=== PATIENT | female | born 1955 | race Caucasian/White ===

== ENCOUNTER → 2017-02-23 | Outpatient (CLI) | payer BC ==
[~2017-02-23] MED LIST: ACET-749 PO; ALBU1AER9 INH; BECL0.3A INH; CALCIUM/VIT D PO; CITA20TA9 PO; CLB/200 PO; CYAN100T PO; CYCL10TA6 PO; FURO-85 PO; HYDR-3785 PO; METR0.7527 TD; MONT1TAB3 PO; MULT-188 PO; MULT-506 PO; OLOP0.1S2 OPB; OMEP40CA PO; POLYSOL4 OPB; POTA1CAP2 PO; ROPI1TAB PO; SALI1SPR3 NAE; TETR1CAP7 PO; TRAZ1TAB52 PO; [UNRECOGNIZED DRUG - OTHER] PO
--- NOTE | 2017-02-24 13:54 | MAMMOGRAPHY REPORT ---
BILATERAL DIGITAL SCREENING MAMMOGRAM TOMOSYNTHESIS WITH CAD: 02/23/2017 CLINICAL HISTORY: Routine screening. TECHNIQUE: Breast tomosynthesis in addition to standard 2D mammography was performed. Current study was also evaluated with a Computer Aided Detection (CAD) system. COMPARISON: Comparison is made to exams dated: 02/22/2016 mammogram, 02/15/2016 mammogram, 02/12/2015 lexi mogram, 02/06/2014 mammogram, 02/03/2013 mammogram, and 02/02/2012 mammogram - [facility] [address] BREAST COMPOSITION: The tissue of both breasts is almost entirely fatty. FINDINGS: A 4 mm mass, previously documented to represent a cyst, in the 3:00 left breast has resolv ed. There is a stable 10 mm mass in the upper outer middle one third of the left breast. No new cameron picious mass, architectural distortion or cluster of microcalcifications is seen. IMPRESSION: ACR BI-RADS CATEGORY 1: NEGATIVE There is no mammographic evidence of malignancy. A 1 year screening mammogram is recommended. The pa tient will receive written notification of the results. Approximately 10% of breast cancers are not detected with mammography. A negative mammographic report should not delay biopsy if a clinically suggestive mass is present. Adriane Robles M.D. ay/:02/23/2017 16:27:29 Tool Crib Supervisor: José Antonio GARZA(Irasema)(M), [facility] letter sent: Normal 1/2 BI-RADS Code: ACR BI-RADS Category 1: Negative
== END | disposition home or self-care (01) ==
LOC: C.MAMM 14:50
PROVIDERS: ATTEND Family Medicine
DX: Z12.31 Encounter for screening mammogram for malignant neoplasm of breast (principal)

== ENCOUNTER → 2018-03-25 | Outpatient (CLI) | payer BC ==
[~2018-03-25] MED LIST changes: -ACET-749 PO; +ACET300T3 PO; -OLOP0.1S2 OPB; +OLOP0.1S3 OPB; +SALI-3 NAE; -SALI1SPR3 NAE
== END | disposition home or self-care (01) ==
LOC: C.MAMM 14:05
PROVIDERS: ATTEND Family Medicine
DX: M85.88 Other specified disorders of bone density and structure, other site (principal); M85.851 Other specified disorders of bone density and structure, right thigh; M85.852 Other specified disorders of bone density and structure, left thigh

== ENCOUNTER → 2018-03-31 | Outpatient (CLI) | payer BC ==
--- NOTE | 2018-04-01 15:43 | MAMMOGRAPHY REPORT ---
BILATERAL DIGITAL SCREENING MAMMOGRAM TOMOSYNTHESIS WITH CAD: 03/31/2018 CLINICAL HISTORY: Routine screening. Patient has no complaints. TECHNIQUE: The study was acquired using full field digital technology and interpreted from soft copy. Breast tomosynthesis in addition to standard 2D mammography was performed. Current study was also ev aluated with a Computer Aided Detection (CAD) system. COMPARISON: Comparison is made to exams dated: 02/23/2017 mammogram, 02/22/2016 mammogram, 02/15/2016 lexi mogram, 02/12/2015 mammogram, 08/08/2014 mammogram, and 02/09/2014 mammogram - [facility]. BREAST COMPOSITION: The tissue of both breasts is almost entirely fatty. FINDINGS: No suspicious masses, calcifications, or areas of architectural distortion are noted in either breast . There has been no significant interval change compared to prior exams. Small mass in the left uppe r outer quadrant is stable compared to prior exams dating back to at least 2008. IMPRESSION: ACR BI-RADS CATEGORY 2: BENIGN There is no mammographic evidence of malignancy. A 1 year screening mammogram is recommended.( 019) The patient will receive written notification of the results. Some breast cancers are not detected with mammography. A negative mammographic report should not samir y biopsy if a clinically suggestive mass is present. Julia Galo M.D. /:03/31/2018 16:24:58 Flake Cutter Operator: RT Jesse(Irasema)(M)(BD), [facility] letter sent: Normal 1/2 BI-RADS Code: ACR BI-RADS Category 2: Benign
== END | disposition home or self-care (01) ==
LOC: C.MAMM 16:05
PROVIDERS: ATTEND Family Medicine
DX: Z12.31 Encounter for screening mammogram for malignant neoplasm of breast (principal)

== ENCOUNTER 2024-09-13 19:27 | Observation (INO) ==
[2024-09-13] MEDS: ALBUT/IPRATROP 3MG/0.5MG NEB 3 ML VIAL NEB STA ×2 (19:52→21:16)
--- NOTE | 2024-09-13 19:53 | Emergency Department Note ---
Impression & Plan Hypoxia ADMIT ED Provider Note HPI: History obtained from patient. The patient is a 69-year-old female with history of asthma, presents the emergency department with a chief complaint of ongoing cough and shortness of breath. Patient states that she has had the symptoms to some degree for about the past 3 months. Patient states they seem to be getting more intense over the past month. Patient states she is currently on cefuroxime for possible pneumonia after recent sputum culture. Patient states that over the past several days she seems to be getting more short of breath with exertion, she complains of chest "tightness". On arrival here to the ED the patient is conversational, she is hypertensive on arrival at 173/77, she is saturating well on room air, heart rate is within normal limits, patient is afebrile on arrival. ROS: - Per HPI Differential Diagnosis: Acute asthma exacerbation, viral upper respiratory infection to include COVID-19 infection, influenza A, bacterial pneumonia, CHF exacerbation, pleural effusion, PE, ACS, amongst other potential pathologies. *Outpatient medications and allergy history reviewed. PE: General: Alert HEENT: Normocephalic, trachea midline Eyes: Extraocular eye movement is intact, no scleral erythema Pulmonary: Moderate expiratory wheezing bilaterally and throughout Cardio: Regular rate and rhythm GI: Abdomen is soft to palpation : No suprapubic tenderness MSK: No evidence of trauma or malformation of the extremities, no edema Skin: No evidence of rash Neuro: Alert, no focal deficits Psychiatric: Cooperative INDEPENDENT INTERPRETATIONS: seamark advanced operator maintainer: (As interpreted by myself): - An order was placed for continuous cardiac monitoring - Patient was noted to be in sinus rhythm with a rate of 60 EKG: (As interpreted by myself): Rate: 64 Rhythm: Normal sinus rhythm Intervals: Within normal limits ST changes: No ST elevation Time: 1945 Chest x-ray: (As interpreted by myself): No acute process Interventions provided in ED: -DuoNeb breathing treatment x 2, IV Solu-Medrol Medical Decision Making: Patient presented to the emergency department with apparent asthma exacerbation/bronchospasm. IV was established and lab work obtained, patient was placed on grill chef. Patient was given DuoNeb breathing treatment and IV Solu-Medrol. Lab work shows no leukocytosis, hemoglobin is normal, platelet count is normal, venous blood gas was obtained that shows a normal pH, pCO2 is also normal. CMP does not show any evidence of any critical findings, troponin is negative, BNP is within normal limits. Viral panel testing was obtained and is negative. Chest x-ray per my interpretation does not show any evidence of pneumonia. Despite multiple breathing treatments here in the ED, the patient had episodes of hypoxia into the high 80s. Patient had to be maintained on 2 L nasal cannula oxygen to keep her oxygen saturation above 92%. Given this patient will be placed for admission for further care. Patient was in agreement to this plan, [facility] hospitalist service was consulted for admission and the patient was placed for admission in stable condition. Consultants/Discussions held with other healthcare providers: -Hospitalist, Dr. Kearns Disposition discussion held by myself with: -Patient Critical care time: 33 minutes -Stabilization of the patient with hypoxia 89% on room air secondary to acute bronchospasm requiring administration of nasal cannula supplemental oxygen, DuoNeb breathing treatments and IV steroids for correction, time spent at the bedside, interpretation of diagnostic studies, consultation with other healthcare providers and arrangement of admission. Diagnosis: 1. Hypoxia, acute 2. 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) Lumbar radiculopathy (Chronic) Intrinsic asthma (Chronic) Chronic sinusitis (Chronic) Allergic rhinitis due to other allergen (Chronic) Allergic rhinitis due to dust (Chronic) Allergic rhinitis due to dogs (Chronic) Acquired deviated nasal septum (Chronic) Chronic rhinitis (Chronic) Chronic gastroesophageal reflux disease (Chronic) Osteoarthritis (Chronic) Cough Left ureteral calculus Medical History Asthma High cholesterol Pyelonephritis Iron deficiency anemia Tinnitus Surgical History Hx of neck surgery Fusion of spine History of colonoscopy (2005) History of hand surgery History of tooth extraction History of dilation and curettage History of endometrial ablation History of conization of cervix History of tonsillectomy and adenoidectomy History of sinus surgery H/O neck surgery Previous back surgery Family History Unknown Allergic rhinitis Diabetes Aunt Breast cancer Father Cardiomyopathy Chronic low back pain Mother Chronic low back pain Grandfather Stroke Social History Smoking Status: Never smoker Second Hand Exposure: No; Do You Dip or Chew Tobacco: No; Hx Alcohol Use: No Hx Substance Use: No Preferred Language: Frisian Communication Ability: Effective Apartment Groundskeeper Required: No Beliefs That Will Affect Care: None marital status: Current Living Situation: Spouse current occupational status: retired Feels Safe at Home: Yes Childhood Exposure to Second-Hand Smoke: No Assistive Devices: Glasses Allergies Allergies Allergy/AdvReac Type Severity Reaction Status Date / Time aspirin [From Bradley Aspirin] Allergy Unknown Unknown Verified 09/13/24 22:47 grass pollen Allergy Unknown Unknown Verified 09/13/24 22:47 house dust mite Allergy Unknown Unknown Verified 09/13/24 22:47 nut - unspecified Allergy Unknown RASH/ITCHIN Verified 09/07/24 15:16 G ragweed pollen Allergy Unknown Unknown Verified 09/13/24 22:47 tree and shrub pollen Allergy Unknown Unknown Verified 09/13/24 22:47 orange Allergy Unknown Verified 09/13/24 22:47 fexofenadine AdvReac Mild "mind Verified 09/07/24 15:16 changes memory" levofloxacin AdvReac HSEVERE Verified 09/13/24 22:47 H/A,BURNING EYES,MULTI MUSCLE ACHING Home Meds Home Medications Medication Instructions Recorded Confirmed ascorbic acid (vitamin C) 500 mg 500 mg PO QDD 03/22/19 09/13/24 tablet cholecalciferol (vitamin D3) 25 1,000 unit PO QAM 03/22/19 09/13/24 mcg (1,000 unit) tablet potassium chloride 20 mEq 20 meq PO QAM 03/22/19 09/13/24 tablet,extended release vit C,Y-Pd-tvtzgk-lutein-zeaxan 60 1 cap PO QAM 04/25/19 09/13/24 mg-13.5 mg-15 mg-2 mg-6 mg capsule (Ocuvite Lutein and Zeaxanthin) trazodone 100 mg tablet 200 mg PO HS 07/25/21 09/13/24 peg 400-propylene glycol 0.4 %-0.3 1 drp ophthalmic (eye) DAILY PRN 08/06/22 09/13/24 % eye drops (Systane Ultra) Dry Eye(S) clobetasol 0.05 % topical cream 1 applic topical PRN 12/30/22 09/13/24 Lactobacillus rhamnosus GG 10 1 cap PO AMPM 09/13/24 09/13/24 billion cell-inulin 200 mg capsule ([facility] [employer] [facility]) albuterol sulfate 90 mcg/actuation 2 puff inhalation Q4 PRN ASTHMA 09/13/24 09/13/24 aerosol inhaler ATTACK budesonide 0.25 mg/2 mL suspension 0.5 mg irrigation BID 09/13/24 09/13/24 for nebulization guaifenesin 600 mg tablet, 600 mg PO AMPM 09/13/24 09/13/24 extended release 12 hr metronidazole 0.75 % topical gel 1 applic topical DAILY PRN Acne 09/13/24 09/13/24 triamcinolone acetonide 55 mcg 2 spray intranasal AMPM 09/13/24 09/13/24 nasal spray aerosol (Nasacort) Previous Rx's Medication Instructions Recorded montelukast 10 mg tablet 10 mg PO HS #90 tabs 06/14/20 azelastine 137 mcg (0.1 %) nasal 1 spray intranasal BID #90 mL 05/20/24 spray budesonide-formoterol HFA 160 2 puff inhalation BID #30.6 grams 05/20/24 mcg-4.5 mcg/actuation aerosol inhaler (Symbicort) cefuroxime axetil 500 mg tablet 500 mg PO BID #20 tabs 09/09/24 Results & Data (ED) Vital Signs Vital Signs - 24 hr 09/13/24 19:29 09/13/24 19:38 09/13/24 19:44 Temperature 36.1 C L Temperature Source Temporal Artery Scan Pulse Rate 84 Pulse Rate from SpO2 Sensor Pulse Rhythm Regular Pulse Strength Normal Respiratory Rate 18 Respiratory Effort / Characteristics Non-Labored Spontaneous Non-Labored Spontaneous Respiratory Depth Normal Normal Respiratory Pattern Regular Regular Blood Pressure 173/77 H Blood Pressure Mean 109 Blood Pressure Position Sitting Pulse Oximetry 94 94 Oxygen Delivery Method Room Air Room Air Room Air Oxygen Flow Rate 0 Sepsis Recent Fever Within 48 Hours No Sepsis New/Unexplained Change in Mental Status N/A Sepsis Action Taken by Nursing No Action Required Oxygen Flow Rate - Titration Pulse Oximetry Post Tiitration 09/13/24 19:47 09/13/24 19:49 09/13/24 19:57 Temperature Temperature Source Pulse Rate 68 68 63 Pulse Rate from SpO2 Sensor 64 Pulse Rhythm Regular Pulse Strength Respiratory Rate 24 21 Respiratory Effort / Characteristics Respiratory Depth Respiratory Pattern Blood Pressure 147/93 H Blood Pressure Mean 111 Blood Pressure Position Pulse Oximetry 94 100 Oxygen Delivery Method Room Air Oxygen Flow Rate 0 Sepsis Recent Fever Within 48 Hours Sepsis New/Unexplained Change in Mental Status Sepsis Action Taken by Nursing Oxygen Flow Rate - Titration Pulse Oximetry Post Tiitration 09/13/24 20:00 09/13/24 20:30 09/13/24 21:00 Temperature Temperature Source Pulse Rate 66 71 68 Pulse Rate from SpO2 Sensor 66 72 71 Pulse Rhythm Pulse Strength Respiratory Rate 23 21 21 Respiratory Effort / Characteristics Respiratory Depth Respiratory Pattern Blood Pressure 142/89 H 142/87 H 141/77 H Blood Pressure Mean 96 105 107 Blood Pressure Position Pulse Oximetry 99 94 92 Oxygen Delivery Method Oxygen Flow Rate Sepsis Recent Fever Within 48 Hours Sepsis New/Unexplained Change in Mental Status Sepsis Action Taken by Nursing Oxygen Flow Rate - Titration Pulse Oximetry Post Tiitration 09/13/24 21:12 09/13/24 21:30 Temperature Temperature Source Pulse Rate 57 L Pulse Rate from SpO2 Sensor 56 L Pulse Rhythm Pulse Strength Respiratory Rate 23 Respiratory Effort / Characteristics Respiratory Depth Respiratory Pattern Blood Pressure 130/78 Blood Pressure Mean 94 Blood Pressure Position Pulse Oximetry 89 L 100 Oxygen Delivery Method Room Air Oxygen Flow Rate 0 Sepsis Recent Fever Within 48 Hours Sepsis New/Unexplained Change in Mental Status Sepsis Action Taken by Nursing Oxygen Flow Rate - Titration 2 Pulse Oximetry Post Tiitration 94 Laboratory Data 09/13/24 19:51 09/13/24 19:51 Lab Results 09/13/24 Range/Units 19:51 WBC 6.37 (4.8-10.8) K/ul RBC 4.61 (4.20-5.40) M/uL Hgb 13.6 (12.0-16.0) g/dl Hct 40.8 (37.0-47.0) % MCV 88.5 (80.0-100.0) fL MCH 29.5 (25.0-34.0) pg MCHC 33.3 (32.0-36.0) g/dL RDW Std Deviation 41.8 (36.4-46.3) fL RDW Coeff of Stephany 12.9 (11.5-14.5) % Plt Count 222 (130-400) K/uL MPV 10.6 (9.4-12.4) fL Immature Gran % (Auto) 0.2 % Neut % (Auto) 50.3 % Lymph % (Auto) 24.3 % [place] % (Auto) 10.0 % Eos % (Auto) 13.8 % Baso % (Auto) 1.4 % Neut # (Auto) 3.20 (1.40-6.50) K/uL Lymph # (Auto) 1.55 (1.20-3.40) K/uL [place] # (Auto) 0.64 H (0.11-0.59) K/uL Eos # (Auto) 0.88 H (0.00-0.50) K/uL Baso # (Auto) 0.09 (0.00-0.20) K/uL Immature Gran # (Auto) 0.01 (0.01-0.20) K/uL PT 11.0 (9.0-12.0) Seconds INR 1.0 (0.9-1.1) VBG pH 7.41 (7.36-7.41) VBG pCO2 47 (38-50) mmHg VBG pO2 42 mmHg VBG HCO3 30 mmol/L VBG O2 Saturation 70.5 % VBG Base Excess 4.3 mEq/L Sodium 141 (136-145) mmol/L Potassium 3.9 (3.5-5.1) mmol/L Chloride 108 H (98-107) mmol/L Carbon Dioxide 28 (21-32) mmol/L Anion Gap 5 (3-11) BUN 18 (6-23) mg/dl Creatinine 0.63 (0.6-1.2) mg/dl Est Cr Clr Drug Dosing 79.0 ml/min eGFR 94.78 BUN/Creatinine Ratio 28.6 H (10-20) Glucose 94 (70-99(Fasting)) mg/dl Calcium 9.6 (8.6-10.3) mg/dl Total Bilirubin 0.4 (0.2-1.0) mg/dl AST 21 (13-39) U/L ALT 17 (7-52) U/L Alkaline Phosphatase 95 (34-104) U/L Troponin I High Sens 4.3 (0-14) pg/ml B-Natriuretic Peptide 34 (0-100) pg/ml Total Protein 6.6 (6.0-8.3) gm/dl Albumin 4.3 (3.4-5.0) gm/dl Globulin 2.3 L (2.5-4.0) gm/dl Albumin/Globulin Ratio 1.9 (0.9-2) Adenovirus (PCR) Not Detected (NotDetected) B. pertussis DNA (PCR) Not Detected (NotDetected) B.parapertussis DNA PCR Not Detected (NotDetected) C. pneumoniae DNA (PCR) Not Detected (NotDetected) Coronavirus OC43 (PCR) Not Detected (NotDetected) Coronavirus HKU1 (PCR) Not Detected (NotDetected) Coronavirus 229E (PCR) Not Detected (NotDetected) SARS-CoV-2 (PCR) Not Detected (NotDetected) Coronavirus NL63 (PCR) Not Detected (NotDetected) Human Metapneumovir PCR Not Detected (NotDetected) Influenza Type A (PCR) Not Detected (NotDetected) Influenza Type B (PCR) Not Detected (NotDetected) M. pneumoniae (PCR) Not Detected (NotDetected) Parainfluenza 1 (PCR) Not Detected (NotDetected) Parainfluenza 2 (PCR) Not Detected (NotDetected) Parainfluenza 3 (PCR) Not Detected (NotDetected) Parainfluenza 4 (PCR) Not Detected (NotDetected) RSV (PCR) Not Detected (NotDetected) Entero/Rhino (PCR) Not Detected (NotDetected) Administered Medications Discontinued Medications Albuterol (Albut/Ipratrop 3mg/0.5mg Neb 3 Ml Vial) 3 ml NEB NOW STA; Protocol Stop: 09/13/24 19:45 Last Admin: 09/13/24 19:52 Dose: 3 ml Documented By: SAKSHI Albuterol (Albut/Ipratrop 3mg/0.5mg Neb 3 Ml Vial) 3 ml NEB NOW STA; Protocol Stop: 09/13/24 21:13 Last Admin: 09/13/24 21:16 Dose: 3 ml Documented By: SAKSHI Methylprednisolone (Methylprednisolone 125 Mg/2 Ml Vial) 125 mg IV NOW STA Stop: 09/13/24 21:12 Last Admin: 09/13/24 21:16 Dose: 125 mg Documented By: SAKSHI Imaging Data Radiologist's Impression: Chest X-Ray 09/13/24 19:36 Exam(s): XR CXR 1 VIEW EXAM: XR Chest, 1 View CLINICAL HISTORY: Reason for exam: Dyspnea. TECHNIQUE: Frontal view of the chest. COMPARISON: 09/07/2024. FINDINGS: Lungs: No infiltrate. No atelectasis. No CHF. Pleural space: No pleural effusion. No pneumothorax. Heart: Mild cardiomegaly. Mediastinum: Unremarkable. Normal mediastinal contour. Bones/joints: Degenerative changes of the spine. No acute fracture. IMPRESSION: No acute abnormality. Electronically signed by: Bjorn South M.D. 09/13/24 21:05 PM Discharge Plan Visit Data Chief Complaint: Shortness of Breath/Dyspnea Stated Complaint: COUGHING, SOB, INHALER NOT WORKING ED Provider: Raul Quintero Discharge Problem: Hypoxia Forms Stand Alone Forms: My [facility] [employer] Prescriptions Prescriptions: No Action montelukast 10 mg tablet 10 mg PO HS Qty: 90 3RF budesonide-formoterol [Symbicort] 160-4.5 mcg/actuation HFA aerosol inhaler 2 puff INH BID Qty: 30.6 3RF Rx Instructions: with a rinse of mouth afterwards azelastine 137 mcg (0.1 %) spray,non-aerosol 1 spray INTNAS BID Qty: 90 3RF cefuroxime axetil 500 mg tablet 500 mg PO BID Qty: 20 0RF Rx Instructions: TAKE FOR 10 DAYS potassium chloride 20 mEq tablet extended release 20 meq PO QAM cholecalciferol (vitamin D3) 1,000 unit (25 mcg) tablet 1,000 unit PO QAM ascorbic acid (vitamin C) 500 mg tablet 500 mg PO QDD clobetasol 0.05 % cream 1 applic topical PRN Systane Ultra 0.4-0.3 % drops 1 drp ophthalmic (eye) DAILY PRN (Reason: Dry Eye(S)) trazodone 100 mg tablet 200 mg PO HS Patient Comments: Only took 100mg Ocuvite Lutein and Zeaxanthin 60 mg-13.5 mg- 15 mg-2 mg-6 mg Capsule 1 cap PO QAM albuterol sulfate 90 mcg/actuation Hfa Aerosol Inhaler 2 puff INHALATION Q4 PRN (Reason: ASTHMA ATTACK) budesonide 0.25 mg/2 mL suspension for nebulization 0.5 mg irrigation BID Rx Instructions: MIX WITH SALINE PACKET AND 8 OZ DISTILLED WATER AND USE NASALLY metronidazole 0.75 % Gel 1 applic TOPICAL DAILY PRN (Reason: Acne) [facility] 10 billion cell -200 mg Capsule 1 cap PO AMPM triamcinolone acetonide [Nasacort] 55 mcg Aerosol,Armour 2 spray INTRANASAL AMPM Rx Instructions: administer into each nostril guaifenesin 600 mg tablet extended release 12hr 600 mg PO AMPM Referrals Referrals: Andrea Lynn DO [Primary Care Provider] -
[2024-09-13 20:01] LABS: Base Excess VBG 4.3 mEq/L; HCO3 VBG 30 mmol/L; Oxygen Saturation VBG 70.5 %; PCO2 VBG 47 mmHg (38-50); PO2 VBG 42 mmHg; pH VBG 7.41 (7.36-7.41)
[2024-09-13 20:09] LABS: Basophils # (auto) 0.09 K/uL (0.00-0.20); Basophils % (auto) 1.4 %; Eosinophils # (auto) 0.88 K/uL (0.00-0.50); Eosinophils % (auto) 13.8 %; Hematocrit (blood only) 40.8 % (37.0-47.0); Hemoglobin 13.6 g/dl (12.0-16.0); Immature Granulocytes # (auto) 0.01 K/uL (0.01-0.20); Immature Granulocytes % (auto) 0.2 %; Lymphocytes # (auto) 1.55 K/uL (1.20-3.40); Lymphocytes % (auto) 24.3 %; Mean Corpuscular Hemoglobin 29.5 pg (25.0-34.0); Mean Corpuscular Hgb Conc 33.3 g/dL (32.0-36.0); Mean Corpuscular Volume 88.5 fL (80.0-100.0); Mean Platelet Volume 10.6 fL (9.4-12.4); Monocytes # (auto) 0.64 K/uL (0.11-0.59); Neutrophils % (auto) 50.3 %; Platelet Count 222 K/uL (130-400); RDW Coefficient of Variation 12.9 % (11.5-14.5); RDW Standard Deviation 41.8 fL (36.4-46.3); Red Blood Count 4.61 M/uL (4.20-5.40); White Blood Count 6.37 K/ul (4.8-10.8)
[2024-09-13 20:25] LABS: Albumin Globulin Ratio 1.9 (0.9-2); Albumin Level 4.3 gm/dl (3.4-5.0); BUN Creatinine Ratio 28.6 (10-20); Bilirubin,Total 0.4 mg/dl (0.2-1.0); Calcium 9.6 mg/dl (8.6-10.3); Globulin 2.3 gm/dl (2.5-4.0); Potassium 3.9 mmol/L (3.5-5.1); Total Protein 6.6 gm/dl (6.0-8.3)
[2024-09-13 20:32] LABS: Troponin I High Sensitivity 4.3 pg/ml (0-14)
[2024-09-13 20:49] LABS: Adenovirus PCR Not Detected (NotDetected); Bordetella parapertussis PCR Not Detected (NotDetected); Bordetella pertussis PCR Not Detected (NotDetected); Chlamydia pneumoniae PCR Not Detected (NotDetected); Coronavirus 229E PCR Not Detected (NotDetected); Coronavirus CoV-2 (COVID19)PCR Not Detected (NotDetected); Coronavirus HKU1 PCR Not Detected (NotDetected); Coronavirus NL63 PCR Not Detected (NotDetected); Coronavirus OC43PCR Not Detected (NotDetected); Human Metapneumovirus PCR Not Detected (NotDetected); Influenza A PCR Not Detected (NotDetected); Influenza B PCR Not Detected (NotDetected); Mycoplasma pneumoniae PCR Not Detected (NotDetected); Parainfluenza Virus 1 PCR Not Detected (NotDetected); Parainfluenza Virus 2 PCR Not Detected (NotDetected); Parainfluenza Virus 3 PCR Not Detected (NotDetected); Parainfluenza Virus 4 PCR Not Detected (NotDetected); Respiratory Syncytial VirusPCR Not Detected (NotDetected); Rhinovirus/Enterovirus PCR Not Detected (NotDetected)
--- NOTE | 2024-09-13 21:07 | XRay Report ---
Exam(s): XR CXR 1 VIEW EXAM: XR Chest, 1 View CLINICAL HISTORY: Reason for exam: Dyspnea. TECHNIQUE: Frontal view of the chest. COMPARISON: 09/07/2024. FINDINGS: Lungs: No infiltrate. No atelectasis. No CHF. Pleural space: No pleural effusion. No pneumothorax. Heart: Mild cardiomegaly. Mediastinum: Unremarkable. Normal mediastinal contour. Bones/joints: Degenerative changes of the spine. No acute fracture. IMPRESSION: No acute abnormality. Electronically signed by: Bjorn South M.D. 09/13/24 21:05 PM
[2024-09-13] MEDS: methylPREDNISolone 125 MG/2 ML VIAL IV STA (21:16)
--- NOTE | 2024-09-13 22:06 | History & Physical Report ---
Date of Service September 13, 2024 Assessment & Plan (1) Dyspnea: Plan: Pt is a 69 yo female with PMH of asthma, chronic cough, and allergies presenting d/t increasing SOB. Chronic cough/increased SOB/hx of asthma - pt with similar symptoms ongoing x3 mths but acute worsening over the last week and then acutely worsened again today - VSS (no fever, respirations WNL, pt saturating well with little or no supplemental oxygen) - lab work WNL (no leukocytosis, no CHANELLE, normal electrolytes) - RVP negative; CXR WNL - s/p duoneb in ER with improvement in breathing; continue duoneb PRN- continue pt's daily home inhaler regimen with steroid/LABA - s/p methylpred 125mg in ER; continue with prednisone 50 mg daily for presumed asthma exacerbation - last PFTs in 2019; would recommend repeat as an outpatient - deferring systemic ABX on admission as pt does not appear to have any lung infectious etiology (VSS WNL, exam WNL, no fever, no leukocytosis, neg CXR, etc) - d/t ongoing cough without clear etiology, CT chest w/ contrast ordered to evaluate lung parenchyma Chronic sinusitis - ongoing for many years; pt s/p 4 sinus surgeries - hx of nasal pseudomonas in 2019 which was treated with decadron and nasal gentamicin; will start nasal gentamicin again and systemic prednisone as above - CT sinus scan ordered - encourage continued f/u with ENT outpatient Diet: heart healthy Code: full VTE ppx: deferred as expected short LOS; would recommend addition of chemoppx if hospital stay prolonged Dispo: admit to med/surg (2) Chronic sinusitis: (3) Intrinsic asthma: (4) Cough: History of Present Illness Chief Complaint: SOB Primary Care Provider: Andrea Lynn DO Pt is a 69 yo female with PMH of asthma, chronic cough, and allergies presenting d/t increasing SOB. Pt explains that her cough began a few months ago- it is productive and she brings up green mucous. Sometimes she struggles to have bring up the mucous. She also has chronic sinus problems which also leave her with nasal mucous that is also sometimes to get out. She notes she has had 4 sinus surgeries in the past. Today, she noted that she had multiple coughing fits and felt unable to catch her breath. She used her inhalers at home and these did not improve her symptoms which caused her to seek help at the ER. Pt is followed by ENT and allergy as an outpatient. At her most recent visit with ENT (08/22) she was treated with augmentin BID x10 days and inhaled budesonide for chronic sinusitis with plan for sinus CT. Her symptoms did not improve. At her most recent visit with allergy (09/07), levaquin was added d/t her hx of pseudomonas in her nares- she took one dose of this and she developed severe body aches/fatigue. She was then prescribed cefuroxime instead which she has taken a few pills of. She was also ordered a CXR (which was unrevealing) and sputum culture which showed no pathologic organisms. She has a hx of nasal pseudomonas in 2018 when she had developed a chronic productive cough which was found to be secondary to sinusitis and thus required surgery. She was treated with decadron and gentamicin at that time- her symptoms did not resolve completely. She underwent a bronchoscopy at that time which was unrevealing. Previous PFTs have shown a reduction in FEV1; however, her most recent PFTs in 2019 were normal. In the ER, pt was given albuterol nebs x2 and methylprednisone 125mg IV. Allergies Allergy/AdvReac Type Severity Reaction Status Date / Time aspirin [From [facility]] Allergy Unknown Unknown Verified 09/13/24 22:47 grass pollen Allergy Unknown Unknown Verified 09/13/24 22:47 house dust mite Allergy Unknown Unknown Verified 09/13/24 22:47 nut - unspecified Allergy Unknown RASH/ITCHIN Verified 09/07/24 15:16 G ragweed pollen Allergy Unknown Unknown Verified 09/13/24 22:47 tree and shrub pollen Allergy Unknown Unknown Verified 09/13/24 22:47 orange Allergy Unknown Verified 09/13/24 22:47 fexofenadine AdvReac Mild "mind Verified 09/07/24 15:16 changes memory" levofloxacin AdvReac HSEVERE Verified 09/13/24 22:47 H/A,BURNING EYES,MULTI MUSCLE ACHING Home Medications Medication Instructions Recorded Confirmed Type ascorbic acid (vitamin C) 500 mg 500 mg PO QDD 03/22/19 09/13/24 History tablet cholecalciferol (vitamin D3) 25 1,000 unit PO QAM 03/22/19 09/13/24 History mcg (1,000 unit) tablet potassium chloride 20 mEq 20 meq PO QAM 03/22/19 09/13/24 History tablet,extended release vit C,W-Oa-bqjxxw-lutein-zeaxan 60 1 cap PO QAM 04/25/19 09/13/24 History mg-13.5 mg-15 mg-2 mg-6 mg capsule (Ocuvite Lutein and Zeaxanthin) montelukast 10 mg tablet 10 mg PO HS #90 tabs 06/14/20 09/13/24 Rx trazodone 100 mg tablet 200 mg PO HS 07/25/21 09/13/24 History peg 400-propylene glycol 0.4 %-0.3 1 drp ophthalmic (eye) DAILY PRN 08/06/22 09/13/24 History % eye drops (Systane Ultra) Dry Eye(S) clobetasol 0.05 % topical cream 1 applic topical PRN 12/30/22 09/13/24 History azelastine 137 mcg (0.1 %) nasal 1 spray intranasal BID #90 mL 05/20/24 09/13/24 Rx spray budesonide-formoterol HFA 160 2 puff inhalation BID #30.6 grams 05/20/24 09/13/24 Rx mcg-4.5 mcg/actuation aerosol inhaler (Symbicort) cefuroxime axetil 500 mg tablet 500 mg PO BID #20 tabs 09/09/24 09/13/24 Rx Lactobacillus rhamnosus GG 10 1 cap PO AMPM 09/13/24 09/13/24 History billion cell-inulin 200 mg capsule ([facility]) albuterol sulfate 90 mcg/actuation 2 puff inhalation Q4 PRN ASTHMA 09/13/24 09/13/24 History aerosol inhaler ATTACK budesonide 0.25 mg/2 mL suspension 0.5 mg irrigation BID 09/13/24 09/13/24 History for nebulization guaifenesin 600 mg tablet, 600 mg PO AMPM 09/13/24 09/13/24 History extended release 12 hr metronidazole 0.75 % topical gel 1 applic topical DAILY PRN Acne 09/13/24 09/13/24 History triamcinolone acetonide 55 mcg 2 spray intranasal AMPM 09/13/24 09/13/24 History nasal spray aerosol (Nasacort) Past Med/Surg History Problem List (Updated 09/14/24 @ 11:01 by Che Stephens PA-C) Asthma exacerbation Eosinophilic asthma Hypoxia (Acute) Dyspnea Otosclerosis of right ear Urinary urgency Stress incontinence Renal calculi Tinnitus of right ear Hypertrophy of inferior nasal turbinate (Chronic) 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) Lumbar radiculopathy (Chronic) Intrinsic asthma (Chronic) Chronic sinusitis (Chronic) Allergic rhinitis due to other allergen (Chronic) Allergic rhinitis due to dust (Chronic) Allergic rhinitis due to dogs (Chronic) Acquired deviated nasal septum (Chronic) Chronic rhinitis (Chronic) Chronic gastroesophageal reflux disease (Chronic) Osteoarthritis (Chronic) Cough Left ureteral calculus Medical History Asthma High cholesterol Pyelonephritis Iron deficiency anemia Tinnitus Surgical History Hx of neck surgery Fusion of spine History of colonoscopy (2005) History of hand surgery History of tooth extraction History of dilation and curettage History of endometrial ablation History of conization of cervix History of tonsillectomy and adenoidectomy History of sinus surgery H/O neck surgery Previous back surgery Family History Unknown Allergic rhinitis Diabetes Aunt Breast cancer Father Cardiomyopathy Chronic low back pain Mother Chronic low back pain Grandfather Stroke Social History Smoking Status: Never smoker Second Hand Exposure: No; Do You Dip or Chew Tobacco: No; Tobacco Cessation Education Requested by Patient: No Hx Alcohol Use: Yes Alcohol type: wine Hx Substance Use: No Preferred Language: [place] Communication Ability: Effective Ndt Inspector Required: No Beliefs That Will Affect Care: None marital status: Current Living Situation: Spouse Current Living Situation Comment: home with current occupational status: retired Other Information That Helps Us Care for You: No Feels Safe at Home: Yes Safety Concerns: Feels Safe At This Time Childhood Exposure to Second-Hand Smoke: No Assistive Devices: None Review of Systems Review of Systems: As per HPI Physical Exam Physical Exam: Constitutional: well appearing, no acute distress HEENT: normocephalic, no conjunctival injection CV: RRR, no murmur, no LE edema Respiratory: CTA bilaterally but breath sounds diminished throughout. No rhonc hi, wheezes, or crackles. No increased work of breathing MSK: no gross deformities noted Skin: warm, dry Neuro: alert, oriented, no FND noted Psych: mood and affect congruent Results & Data Results & Data Vital Signs (Past 12 Hours) Vital Signs Temp Pulse Resp BP Pulse Ox O2 Del Method O2 Flow Rate 09/13/24 21:30 57 L 23 130/78 100 09/13/24 21:12 89 L Room Air 0 09/13/24 21:00 68 21 141/77 H 92 09/13/24 20:30 71 21 142/87 H 94 09/13/24 20:00 66 23 142/89 H 99 09/13/24 19:57 63 21 147/93 H 100 09/13/24 19:49 68 24 94 Room Air 0 09/13/24 19:47 68 09/13/24 19:44 94 Room Air 0 09/13/24 19:38 Room Air 09/13/24 19:29 36.1 C L 84 18 173/77 H 94 Room Air Supervising Physician Co-Signing Physician Notes Attending addendum: I have physically seen this patient, have supervised the medical residents activities, and agree with the H&P unless as otherwise noted. Assessment and Plan: The patient is a 69-year-old female with a past medical history including eosinophilic asthma, chronic cough,, urinary stress incontinence, lumbar radiculopathy, mixed conductive/sensorineural hearing loss right greater than left, chronic GERD, osteoarthritis, renal calculi, and allergic rhinitis. #Acute respiratory failure with hypoxia/asthma exacerbation- Patient with gradually worsening symptoms of the past 3 months, but in particular more severe over the past week. Chest x-ray with no acute findings From the ED received DuoNeb, which improved her breathing symptomatically, and Solu-Medrol 125 mg IV To be continued on prednisone 50 mg daily DuoNebs every 2 hours as needed Mucinex 60 mg p.o. every 12 hours Continue outpatient inhaler regimen Chronic sinusitis/history of nasal Pseudomonas, treated with Decadron and nasal gentamicin rinses in the outpatient setting Resume Decadron and nasal gentamicin ( Ordered CT scan sinuses Follows in outpatient setting with ENT and pulmonology Resident Activity Tracking Resident Involvement: Resident Care Provided Care Provided: Adult [facility] (2) Chronic sinusitis Sinusitis location: pansinusitis Qualified Code(s): J32.4 - Chronic pansinusitis
[2024-09-13] MEDS ORDERED: ONDANSETRON INJ 2 MG/ML 2 ML VIAL IV PRN (22:46)
[2024-09-13] MEDS ORDERED: POLYETHYLENE (MIRALAX) 17 GM PACK PO PRN (22:46)
[2024-09-13] MEDS ORDERED: MELATONIN 3 MG TAB PO PRN (22:46)
[2024-09-13] MEDS: OPTIRAY 320 100ml IV ONE (23:28)
[2024-09-14] MEDS: traZODone HCL 100 MG TAB PO SCH (00:49)
[2024-09-14] MEDS: MONTELUKAST SODIUM 10 MG TABLET PO SCH (00:49)
--- NOTE | 2024-09-14 01:14 | CT Scan Report ---
Exam(s): CT CHEST With Contrast IV Amt: 93 cc opti 320 EXAM: CT Chest With Intravenous Contrast CLINICAL HISTORY: SOB. TECHNIQUE: Axial computed tomography images of the chest with intravenous contrast. CTDI is 19.7 mGy and DLP is 695.41 mGy-cm. Automated exposure control was utilized for the study. A dose lowering technique was utilized adhering to the principles of ALARA. CONTRAST: Patient received 93 cc opti 320 of IV contrast COMPARISON: CT chest 07/19/2019. FINDINGS: Lungs: Mild bilateral lower lobe atelectasis. Small peripheral infiltrates versus atelectasis in the superior medial right upper lobe. No enlarged focal lobar infiltrate. Pleural space: Unremarkable. No pneumothorax. No pleural effusion. Heart: Mild cardiomegaly. No pericardial effusion. No significant coronary artery calcifications. Bones/joints: Degenerative changes of the spine. No acute fracture. Soft tissues: Unremarkable. Vasculature: No thoracic aortic aneurysm or dissection. No central pulmonary artery filling defects/thrombi. Lymph nodes: Redemonstrated scattered mediastinal and hilar lymph nodes measuring up to 1.1 cm at the left hilum. IMPRESSION: Small right upper lobe peripheral infiltrates versus atelectasis. Mild bilateral dependent lower lobe atelectasis. Redemonstrated nonspecific mediastinal and hilar lymphadenopathy. Otherwise no change. Electronically signed by: Bjorn South M.D. 09/14/24 01:13 AM
--- NOTE | 2024-09-14 01:18 | CT Scan Report ---
Exam(s): CT SINUSES EXAM: CT Maxillofacial Sinuses Without Intravenous Contrast CLINICAL HISTORY: chronic sinusitis. TECHNIQUE: Computed tomography images of the maxillofacial sinuses without intravenous contrast. CTDI is 19.7 mGy and DLP is 1344 mGy-cm. Automated exposure control was utilized for the study. A dose lowering technique was utilized adhering to the principles of ALARA. COMPARISON: 03/03/2019 FINDINGS: Redemonstrated bilateral maxillary sinus antral window procedures with defects in the medial ji of both maxillary sinuses. Status post partial resection of the bilateral ethmoid air cells. Mucosal thickening in the bilateral maxillary sinuses, right greater than left. Partial opacification of the bilateral frontal sinuses, frontoethmoidal recesses and anterior ethmoid air cells. Near complete opacification of the right hemispheric sinus. Mild mucosal thickening in the left ami-sphenoid sinus. Opacification of the olfactory recesses. Slight leftward nasal septal deviation. No acute fracture. Orbits are unremarkable. Mastoid air cells are well aerated. IMPRESSION: Postoperative changes including antral windows and partial ethmoidectomies. Increased opacification of paranasal sinuses greatest involving the bilateral frontal sinus, remaining anterior ethmoid air cells and right greater than left ami-sphenoid sinus. Electronically signed by: Bjorn South M.D. 09/14/24 01:17 AM
[2024-09-14] MEDS: IDENTIFIER SCH (01:21)
[2024-09-14] MEDS: SALINE SCH (01:21)
[2024-09-14] MEDS: GENTAMICIN SULFATE SCH (01:21)
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
[2024-09-14 06:47] LABS: Hematocrit (blood only) 40.8 % (37.0-47.0); Hemoglobin 13.6 g/dl (12.0-16.0); Mean Corpuscular Hemoglobin 29.4 pg (25.0-34.0); Mean Corpuscular Hgb Conc 33.3 g/dL (32.0-36.0); Mean Corpuscular Volume 88.3 fL (80.0-100.0); Platelet Count 206 K/uL (130-400); RDW Coefficient of Variation 12.8 % (11.5-14.5); RDW Standard Deviation 41.5 fL (36.4-46.3); Red Blood Count 4.62 M/uL (4.20-5.40); White Blood Count 3.26 K/ul (4.8-10.8)
[2024-09-14 07:04] LABS: BUN Creatinine Ratio 24.2 (10-20); Calcium 10.2 mg/dl (8.6-10.3); Creatinine Clr Calc Pharmacy 80.4 ml/min; Potassium 3.9 mmol/L (3.5-5.1)
[2024-09-14] MEDS: POTASSIUM CHLORIDE CRTAB 20 MEQ TABCR PO SCH (08:22)
[2024-09-14] MEDS: predniSONE 50 MG TAB PO SCH (08:22)
[2024-09-14] MEDS: AZELASTINE HCL 0.1% NASAL 200 SPRAYS/27,400 MCG BTL NAE SCH (08:23)
[2024-09-14] MEDS: FLUTICASONE/VILANTEROL 200/25MCG 14 PUFFS/INHALER INH SCH (08:24)
[2024-09-14] MEDS: ALBUT/IPRATROP 3MG/0.5MG NEB 3 ML VIAL NEB PRN (08:54)
--- NOTE | 2024-09-14 09:44 | Electrocardiogram Report ---
Test Reason : Blood Pressure : */* mmHG Vent. Rate : 64 BPM Atrial Rate : 64 BPM P-R Int : 152 ms QRS Dur : 84 ms QT Int : 416 ms P-R-T Axes : 50 48 65 degrees QTcB Int : 429 ms Normal sinus rhythm Normal ECG When compared with ECG of 07-Apr-2022 11:03, No significant change was found Confirmed by Shaun Zaidi ([id number]) on 09/14/2024 9:44:35 AM Referred By: REFERRED SELF Confirmed By: Shaun Zaidi
--- NOTE | 2024-09-14 11:25 | Hospitalist Progress Note ---
Date of Service September 14, 2024 Assessment & Plan (1) Eosinophilic asthma: (2) Asthma exacerbation: (3) Dyspnea: (4) Chronic sinusitis: (5) Cough: Plan Renetta is a 69 yo female with PMH of asthma, chronic cough, and allergies who presented on - with increased SOB and productive cough. This SOB has been ongoing x 3 months, acutely worsened over the last week leading to admission. She was seen by ENT on 08/22/24 who prescribed her Augmentin BID x 10 days and inhaled budesonide for chronic sinusitis. Her symptoms did not improve. She was seen by Allergy on 09/07/24 who prescribed her Levaquin daily x 7 days due to concern for pseudomonas infection in her nares (as she has previously had). She took one dose of this, developed body aches/fatigue, and her antibiotic was adjusted to cefuroxime. Her sputum culture from 09/08/24 grew H. influenzae (betalactamase negative). #Eosinophilic asthma exacerbation / Dyspnea / SOB - CBC with increased eosinophils, no leukocytosis, respiratory BioFire negative - CXR no acute abnormalities; Chest CT obtained given ongoing productive cough without clear etiology, overall unremarkable - Last PFTs in 2019; would recommend repeat as an outpatient - Continue DuoNebs PRN wheezing - Continue prednisone 50 mg daily for presumed asthma exacerbation - Continue daily home inhaler regimen with steroid/LABA - Will check ANCA, ESR, CRP with morning labs to evaluate for granulomatosis disease #Chronic sinusitis - Ongoing for many years; s/p 4 sinus surgeries - History of nasal pseudomonas in 2019, treated with Decadron and nasal gentamicin at that time - CT sinus obtained on admission without free air fluid levels to suggest acute sinusitis, chronic sinusitis changes noted - Sputum culture 09/08/24 grew H. influenzae (betalactamase negative) - Extend course of Levaquin 500 mg daily through 09/20/24 -- listed allergy d/t body aches and fatigue after taking it outpatient; do not feel this is true allergy; will monitor response - Started Afrin nasal spray BID x 3 days - Recommend nasal rinses with budesonide BID outpatient, unfortunately not able to offer inpatient - Encourage continued f/u with ENT/Allergy outpatient VTE ppx: deferred as expected short LOS; would recommend addition of chemo ppx if hospital stay prolonged Dispo: Continued inpatient stay Reviewed outpatient ENT and Allergy notes Discussed case with outpatient ENT provider Started Afrin NS BID Started Levaquin Admission and Anticipated Discharge Date Admission Date: September 13, 2024 Supervising Physician Co-Signing Physician Notes Attending Attestation - Chart reviewed, care plan d/w SHELBIE Stephens. I agree w/ the damon components of her documentation. Appreciate input from ENT. Calin Chiu MD Subjective Patient seen and evaluated at bedside. She reports she feels better than yesterday but not back to her baseline. She states this morning she had an episode of increased work of breathing after getting up to use the bathroom. She states this improved following a breathing treatment. She continues to have an intermittent cough that is productive with green/clear sputum. We discussed the updated treatment plan. She had some concerns regarding Levaquin as an allergy, we discussed that her symptoms were an adverse effect if anything, not a true allergy. She was agreeable to taking Levaquin. No additional complaints or concerns at this time. Physical Exam Physical Exam: General: No acute distress, nondiaphoretic, well-developed, well-nourished. HEENT: EOM intact, no conjunctival injection, external auditory canals clear, nares patent bilaterally, no cervical chain lymphadenopathy. Cardiac: Regular rate and rhythm without murmurs gallops or rubs. No peripheral edema. Pulm: Diminished throughout but clear to auscultation without wheezes, rales, rhonchi. No respiratory distress. 94% on room air. Abdominal: Soft, nontender, nondistended. Bowel sounds present. Neuro: A&O x3. No focal neurological deficits. Results & Data Results & Data Vital Signs (Past 12 Hours) Vital Signs Temp Pulse Pulse Resp BP BP Pulse Ox 09/14/24 08:55 79 H 94 09/14/24 07:30 97.9 F 61 16 126/76 92 09/14/24 07:17 09/13/24 23:45 09/13/24 23:45 97.5 F L 73 18 140/81 93 09/13/24 23:33 70 22 94 09/13/24 23:00 75 22 145/84 H 93 O2 Del Method O2 Flow Rate 09/14/24 08:55 Room Air 09/14/24 07:30 Nasal Cannula 2 09/14/24 07:17 Nasal Cannula 2 09/13/24 23:45 Room Air 09/13/24 23:45 Room Air 09/13/24 23:33 Nasal Cannula 2 09/13/24 23:00 Laboratory Results Reviewed CBC with differential Reviewed BMP Reviewed outpatient sputum culture PG Care Time/CCT Total # of Minutes Spent Total Time Spent with Patient: Total time spent is greater than 50% in coordination of care (as documented) at patient's floor/unit and/or counseling patient: Coding Level of Care Code 60178 SUB INP/OBS CARE 3/50MIN Diagnoses Eosinophilic asthma J82.83 Asthma exacerbation J45.901 Dyspnea R06.00 Chronic pansinusitis J32.4 Sinusitis location: pansinusitis Cough R05 (4) Chronic sinusitis Sinusitis location: pansinusitis Qualified Code(s): J32.4 - Chronic pansinusitis
[2024-09-14] MEDS: levoFLOXacin 500 MG TAB PO SCH (12:04)
[2024-09-14] MEDS: ACETAMINOPHEN 325 MG TAB PO PRN (12:29)
[2024-09-14] MEDS: OXYMETAZOLINE 0.05% 30 ML BTL SCH (12:46)
--- NOTE | 2024-09-14 20:32 | Billing Data ---
Date of Service September 14, 2024 Coding Level of Care Code 14964 INT INP/OBS CARE
[2024-09-15 08:20] LABS: Hematocrit (blood only) 41.5 % (37.0-47.0); Hemoglobin 13.6 g/dl (12.0-16.0); Mean Corpuscular Hemoglobin 29.1 pg (25.0-34.0); Mean Corpuscular Hgb Conc 32.8 g/dL (32.0-36.0); Mean Corpuscular Volume 88.9 fL (80.0-100.0); Mean Platelet Volume 10.7 fL (9.4-12.4); Platelet Count 225 K/uL (130-400); RDW Coefficient of Variation 13.2 % (11.5-14.5); RDW Standard Deviation 42.6 fL (36.4-46.3); Red Blood Count 4.67 M/uL (4.20-5.40)
--- NOTE | 2024-09-15 18:03 | Hospitalist Progress Note ---
Date of Service September 15, 2024 Assessment & Plan (1) Dyspnea: (2) Chronic sinusitis: (3) Intrinsic asthma: (4) Cough: (5) Eosinophilic asthma: (6) Asthma exacerbation: Plan Renetta is a 69 yo female with PMH of asthma, chronic cough, and allergies who presented on - with increased SOB and productive cough. This SOB has been ongoing x 3 months, acutely worsened over the last week leading to admission. She was seen by ENT on 08/22/24 who prescribed her Augmentin BID x 10 days and inhaled budesonide for chronic sinusitis. Her symptoms did not improve. She was seen by Allergy on 09/07/24 who prescribed her Levaquin daily x 7 days due to concern for pseudomonas infection in her nares (as she has previously had). She took one dose of this, developed body aches/fatigue, and her antibiotic was adjusted to cefuroxime. Her sputum culture from 09/08/24 grew H. influenzae (betalactamase negative). #Eosinophilic asthma exacerbation / Dyspnea / SOB - CBC with increased eosinophils, no leukocytosis, respiratory BioFire negative - CXR no acute abnormalities; Chest CT obtained given ongoing productive cough without clear etiology, overall unremarkable - Last PFTs in 2019; would recommend repeat as an outpatient - Continue DuoNebs PRN wheezing - Continue prednisone 50 mg daily for presumed asthma exacerbation - Continue daily home inhaler regimen with steroid/LABA - ESR, CRP to evaluate for granulomatosis disease were unremarkable; ANCA pending #Chronic sinusitis - Ongoing for many years; s/p 4 sinus surgeries - History of nasal pseudomonas in 2019, treated with Decadron and nasal gentamicin at that time - CT sinus obtained on admission without free air fluid levels to suggest acute sinusitis, chronic sinusitis changes noted - Sputum culture 09/08/24 grew H. influenzae (betalactamase negative) - Extend course of Levaquin 500 mg daily through 09/20/24 -- listed allergy d/t body aches and fatigue after taking it outpatient; do not feel this is true allergy; will monitor response - Started Afrin nasal spray BID x 3 days - Recommend nasal rinses with budesonide BID outpatient, unfortunately not able to offer inpatient - Encourage continued f/u with ENT/Allergy outpatient VTE ppx: deferred as expected short LOS Dispo: Continued inpatient stay overnight, anticipate discharge 09/16/2024 Admission and Anticipated Discharge Date Admission Date: September 13, 2024 Supervising Physician Co-Signing Physician Notes Attending Attestation - Chart reviewed, care plan d/w SHELBIE Stephens. I agree w/ the damon components of her documentation. Calin Chiu MD Subjective Patient seen and evaluated at bedside this morning. She reports that her chest continues to feel tight, productive cough intermittently. She has concern regarding her return home today. Physical Exam Physical Exam: General: No acute distress, nondiaphoretic, well-developed, well-nourished. HEENT: EOM intact, no conjunctival injection, external auditory canals clear, nares patent bilaterally, no cervical chain lymphadenopathy. Cardiac: Regular rate and rhythm without murmurs gallops or rubs. No peripheral edema. Pulm: Diminished throughout but clear to auscultation without wheezes, rales, rhonchi. No respiratory distress. 92% on room air. Abdominal: Soft, nontender, nondistended. Bowel sounds present. Neuro: A&O x3. No focal neurological deficits. Results & Data Results & Data Vital Signs (Past 12 Hours) Vital Signs Temp Pulse Resp BP Pulse Ox O2 Del Method 09/15/24 15:46 97.9 F 77 16 130/79 92 Room Air 09/15/24 15:06 72 16 97 Room Air 09/15/24 08:47 86 16 98 Room Air 09/15/24 07:50 Room Air 09/15/24 07:15 97.5 F L 76 16 150/86 H 92 Room Air Laboratory Results Reviewed CBC/chemistries PG Care Time/CCT Total # of Minutes Spent Total Time Spent with Patient: Total time spent is greater than 50% in coordination of care (as documented) at patient's floor/unit and/or counseling patient: Coding Level of Care Code 68549 SUB INP/OBS CARE 2/35MIN Diagnoses Dyspnea R06.00 Chronic pansinusitis J32.4 Sinusitis location: pansinusitis Intrinsic asthma J45.909 Cough R05 Eosinophilic asthma J82.83 Asthma exacerbation J45.901 (2) Chronic sinusitis Sinusitis location: pansinusitis Qualified Code(s): J32.4 - Chronic pansinusitis
[2024-09-16 07:29] VITALS: BP 125/77; TEMP 97.9
[2024-09-16 11:00] VITALS: PULSE 84; RESP 14; O2SAT 95
--- NOTE | 2024-09-16 17:08 | Discharge Summary ---
Discharge Summary Date of Service September 16, 2024 Principal Dx & Hospital Course #1 = Principal Diagnosis (1) Dyspnea: (2) Chronic sinusitis: (3) Intrinsic asthma: (4) Cough: (5) Eosinophilic asthma: (6) Asthma exacerbation: Eduard Jackson is a 69 yo female with PMH of asthma, chronic cough, and allergies who presented on - with increased SOB and productive cough. This SOB has been ongoing x 3 months, acutely worsened over the last week leading to admission. She was seen by ENT on 08/22/24 who prescribed her Augmentin BID x 10 days and inhaled budesonide for chronic sinusitis. Her symptoms did not improve. She was seen by Allergy on 09/07/24 who prescribed her Levaquin daily x 7 days due to concern for pseudomonas infection in her nares (as she has previously had). She took one dose of this, developed body aches/fatigue, and her antibiotic was adjusted to cefuroxime. Her sputum culture from 09/08/24 grew H. influenzae (betalactamase negative). Repeat sputum culture here just showed moderate normal lorri present. She was given Levaquin in the hospital given low suspicion her reaction was true allergy versus adverse effect versus unrelated to antibiotic, and this was well-tolerated and continued on. #Eosinophilic asthma exacerbation / Dyspnea / SOB - CBC with increased eosinophils, no leukocytosis, respiratory BioFire negative - CXR no acute abnormalities; Chest CT obtained given ongoing productive cough without clear etiology, overall unremarkable - Last PFTs in 2019; would recommend repeat as an outpatient - Continue prednisone 50 mg daily x 7 days on discharge - Continue daily home inhaler regimen with steroid/LABA - ESR, CRP to evaluate for granulomatosis disease were unremarkable; ANCA pending, defer results follow-up to PCP #Chronic sinusitis - Ongoing for many years; s/p 4 sinus surgeries - History of nasal pseudomonas in 2019, treated with Decadron and nasal gentamicin at that time - CT sinus obtained on admission without free air fluid levels to suggest acute sinusitis, chronic sinusitis changes noted - Sputum culture 09/08/24 grew H. influenzae (betalactamase negative) - Extend course of Levaquin 500 mg daily through 09/20/24 -- NOT allergic - Given Afrin nasal spray BID x 3 days -- educated on not extending beyond 3 days due to rebound congestion - Recommend nasal rinses with budesonide BID at home, unfortunately not able to offer inpatient - Encourage continued f/u with ENT/Allergy outpatient Dispo: Discharged home 09/16/2024 Notes For Next Care Provider Recommend repeat PFTs outpatient, last in 2019 Follow-up on ANCA results, ESR and CRP were unremarkable No true allergy to Levaquin, well-tolerated in the hospital and discharged on such Recommend follow-up with PCP, ENT, allergy Medication Changes From Visit Levaquin 500 mg daily x 4 days Prednisone 50 mg daily x 7 days Admission HPI Per Admitting Provider Pt is a 69 yo female with PMH of asthma, chronic cough, and allergies presenting d/t increasing SOB. Pt explains that her cough began a few months ago- it is productive and she brings up green mucous. Sometimes she struggles to have bring up the mucous. She also has chronic sinus problems which also leave her with nasal mucous that is also sometimes to get out. She notes she has had 4 sinus surgeries in the past. Today, she noted that she had multiple coughing fits and felt unable to catch her breath. She used her inhalers at home and these did not improve her symptoms which caused her to seek help at the ER. Pt is followed by ENT and allergy as an outpatient. At her most recent visit with ENT (08/22) she was treated with augmentin BID x10 days and inhaled budesonide for chronic sinusitis with plan for sinus CT. Her symptoms did not improve. At her most recent visit with allergy (09/07), levaquin was added d/t her hx of pseudomonas in her nares- she took one dose of this and she developed severe body aches/fatigue. She was then prescribed cefuroxime instead which she has taken a few pills of. She was also ordered a CXR (which was unrevealing) and sputum culture which showed no pathologic organisms. She has a hx of nasal pseudomonas in 2019 when she had developed a chronic productive cough which was found to be secondary to sinusitis and thus required surgery. She was treated with decadron and gentamicin at that time- her symptoms did not resolve completely. She underwent a bronchoscopy at that time which was unrevealing. Previous PFTs have shown a reduction in FEV1; however, her most recent PFTs in 2019 were normal. In the ER, pt was given albuterol nebs x2 and methylprednisone 125mg IV. Discharge Exam General: No acute distress, nondiaphoretic, well-developed, well-nourished. HEENT: EOM intact, no conjunctival injection, external auditory canals clear, nares patent bilaterally, no cervical chain lymphadenopathy. Cardiac: Regular rate and rhythm without murmurs gallops or rubs. No peripheral edema. Pulm: Diminished throughout but clear to auscultation without wheezes, rales, rhonchi. No respiratory distress. 95% on room air. Abdominal: Soft, nontender, nondistended. Bowel sounds present. Neuro: A&O x3. No focal neurological deficits. Discharge Plan Discharge Items Patient Disposition: Home - Self-Care Reason For Visit: SOB Discharge Diagnosis: Asthma exacerbation, chronic sinusitis Activity: Per Instructions section Non-emergency contact: Primary Care Provider and Specialist Call non-emergency contact if: you have any medication questions and your symptoms worsen Follow-up/Referrals: Toney Reina MD [Physician] - 12/02/24 9:30 am Andrea Lynn DO [Primary Care Provider] - 09/19/24 2:20 pm (Please arrive to appointment by 2:05) Diet: Heart Healthy Addtl Attending Provider Instructions: Renetta, You were admitted to the hospital due to an asthma exacerbation and chronic sinusitis. You were treated with breathing treatments with the respiratory therapy team, antibiotics, and steroids. You will continue treatment at home to complete your treatment course. I recommend that you follow-up with you PCP, ENT, and Allergy doctors outpatient. A work excuse note has been printed with your discharge paperwork. Upon discharge from the hospital: * Take Levaquin (oral antibiotic) once daily x 4 more days. This is to complete a 7 day total antibiotic course. Since you have a recent prescription of Levaquin at home, a new prescription was not sent in to your pharmacy. * Take prednisone (oral steroid) 50 mg once daily x 7 days. * Continue your home inhalers as prescribed. * Continue your nasal rinses with budesonide as previously doing at home. * You can take Tylenol/Ibuprofen as needed for muscle pain associated with cou ghing. * Do NOT take any further Afrin nasal spray. Prolonged use of this can result in rebound congestion. * Follow-up with your PCP, ENT, and Allergy doctors within the next 2-4 weeks. Please return to the hospital if you experience any of the following: difficulty breathing, shortness of breath, chest pain, dizziness, passing out, confusion, or any other symptoms concerning for you. It was a pleasure taking care of you while you were in the hospital! Pending Studies at Discharge: Yes Studies:: Repeat sputum culture Stand-Alone Forms: My [facility], Work/School Release, Smoking Cessation Medications and DC Order Prescriptions: New prednisone 50 mg Tablet 50 mg PO DAILY Qty: 7 0RF Continued montelukast 10 mg tablet 10 mg PO HS Qty: 90 3RF budesonide-formoterol [Symbicort] 160-4.5 mcg/actuation HFA aerosol inhaler 2 puff INH BID Qty: 30.6 3RF Rx Instructions: with a rinse of mouth afterwards azelastine 137 mcg (0.1 %) spray,non-aerosol 1 spray INTNAS BID Qty: 90 3RF potassium chloride 20 mEq tablet extended release 20 meq PO QAM cholecalciferol (vitamin D3) 1,000 unit (25 mcg) tablet 1,000 unit PO QAM ascorbic acid (vitamin C) 500 mg tablet 500 mg PO QDD clobetasol 0.05 % cream 1 applic topical PRN Systane Ultra 0.4-0.3 % drops 1 drp ophthalmic (eye) DAILY PRN (Reason: Dry Eye(S)) trazodone 100 mg tablet 200 mg PO HS Patient Comments: Only took 100mg Ocuvite Lutein and Zeaxanthin 60 mg-13.5 mg- 15 mg-2 mg-6 mg Capsule 1 cap PO QAM albuterol sulfate 90 mcg/actuation Hfa Aerosol Inhaler 2 puff INHALATION Q4 PRN (Reason: ASTHMA ATTACK) budesonide 0.25 mg/2 mL suspension for nebulization 0.5 mg irrigation BID Rx Instructions: MIX WITH SALINE PACKET AND 8 OZ DISTILLED WATER AND USE NASALLY metronidazole 0.75 % Gel 1 applic TOPICAL DAILY PRN (Reason: Acne) [facility] eto [facility] 10 billion cell -200 mg Capsule 1 cap PO AMPM triamcinolone acetonide [Nasacort] 55 mcg Aerosol,Mathews 2 spray INTRANASAL AMPM Rx Instructions: administer into each nostril guaifenesin 600 mg tablet extended release 12hr 600 mg PO AMPM Discontinued cefuroxime axetil 500 mg tablet 500 mg PO BID Qty: 20 0RF Rx Instructions: TAKE FOR 10 DAYS Discharge Orders: Discharge Order (Routine); Ordered 09/16/24 Ordered By: Che Stephens Admission Data Admit Date/Time: 09/13/24 22:47 Attending Provider: Calin Chiu Admit Provider: Yovana White Primary Care Provider: Andrea Lynn Other Providers: Akhil Kearns Other Interventions: Discharge Summary Assessment (RN) Last Done: 09/16/24 12:10 Hospital Stay Data Consultations 09/13/24 22:05 ED Decision to Admit Stat Diagnostic Imagining Performed 09/13/24 22:50 CT chest diagnostic w con Routine CT sinus fusion wo con Routine Pending Results Patient Have Any Pending Studies at Discharge: Yes Discharge Instructions Given to Patient (Per Discharging Provider) Kishore Jackson were admitted to the hospital due to an asthma exacerbation and chronic sinusitis. You were treated with breathing treatments with the respiratory therapy team, antibiotics, and steroids. You will continue treatment at home to complete your treatment course. I recommend that you follow-up with you PCP, ENT, and Allergy doctors outpatient. A work excuse note has been printed with your discharge paperwork. Upon discharge from the hospital: * Take Levaquin (oral antibiotic) once daily x 4 more days. This is to complete a 7 day total antibiotic course. Since you have a recent prescription of Lev aquin at home, a new prescription was not sent in to your pharmacy. * Take prednisone (oral steroid) 50 mg once daily x 7 days. * Continue your home inhalers as prescribed. * Continue your nasal rinses with budesonide as previously doing at home. * You can take Tylenol/Ibuprofen as needed for muscle pain associated with coughing. * Do NOT take any further Afrin nasal spray. Prolonged use of this can result in rebound congestion. * Follow-up with your PCP, ENT, and Allergy doctors within the next 2-4 weeks. Please return to the hospital if you experience any of the following: difficulty breathing, shortness of breath, chest pain, dizziness, passing out, confusion, or any other symptoms concerning for you. It was a pleasure taking care of you while you were in the hospital! Supervising Physician Co-Signing Physician Notes Attending Attestation and Discharge Note: Chart reviewed, discharge care plan d/w SHELBIE Stephens. I agree w/ the damon components of her discharge documentation. Of note - I did not perform a bedside visit or physical exam on day of discharge. 69yo female with history of asthma, chronic cough, chronic sinusitis, and allergies who presented with chronic cough & persistent SOB. Follows with both ENT & allergy for her chronic issues. Recently received augmentin x 10 days for sinusitis and later changed to levofloxacin on 09/07/24 for persistent symptoms. 09/08/24 sputum cx grew H. flu. Sputum cx this admission was negative. Sed rate/crp wnl. During the hospitalization was treated with levofloxacin for her sinusitis. CT chest and CT sinuses were done with results as noted. At discharge she will complete a course of levofloxacin & prednisone. Advised close f/u with ENT & allergy. Of note - in light of chronic sinusitis and lymphadenopathy seen on chest CT the following was sent -- ANCA. Calin Chiu MD Total Time Total Time Spent Total Time Spent (In Minutes): Greater than 30 minutes spent completing this discharge process including direct patient care, medication reconciliation, documentation, review of labs and images, and coordination of care. Coding Level of Care Code 10301 INP/OBS DISCH >30 MIN Diagnoses Dyspnea R06.00 Chronic pansinusitis J32.4 Sinusitis location: pansinusitis Intrinsic asthma J45.909 Cough R05 Eosinophilic asthma J82.83 Asthma exacerbation J45.901
== END 2024-09-16 13:37 | disposition home or self-care (01) ==
LOC: SUATTDRO → 3W 19:27 → ED 19:27 → SUATTDRO 22:47 → 3W 23:33